=== PATIENT | male | born 1955 | race Caucasian/White ===

== ENCOUNTER 2018-06-05 15:00 | Inpatient (IN) ==
--- NOTE | 2018-06-05 15:46 | Emergency Department Note ---
Disposition Clinical Impression: Anemia Qualifiers: Anemia type: unspecified type Qualified Code(s): D64.9 - Anemia, unspecified Disposition: Admitted As Inpatient Condition: Fair Time of Disposition: 00:31 SOB HPI - General Chief Complaint: ED Shortness of Breath/Dyspnea Stated Complaint: SOB/No energy Time Seen by Provider: 06/05/18 15:13 Source: patient Mode of arrival: ambulatory Limitations: no limitations Nursing Notes Reviewed: Yes Vital Signs Reviewed: Yes - History of Present Illness Patient is a 63-year-old male presenting to [facility] ED for a one-year history of gradually progressive and worsening dyspnea and fatigue. Patient states he has a past medical history of myocardial infarction 2008 with a total 5 stent placements since this time. Patient also admits to past medical history of hypertension. In addition his symptoms mentioned above patient admits to intermittent pain on the right side of the back of his head and neck. Patient denies recent fevers chills, chest pain, new onset neck or back pain, abdominal pain/nausea. Admits to one recent episode of vomiting after eating a large meal last Saturday after religious but denies any recurrent episodes of such. Patient denies hematuria/hematochezia, hemoptysis, hematemesis or melena. Pt Subjective Complaint: shortness of breath Onset (ago): year(s) Improves with: rest Worsens with: exertion Known history of: other (IN, stent placement, hypertension) Associated symptoms: Reports: denies other symptoms Treatment prior to arrival: none Cough present: No - Related Data Home Medications Medication Instructions Recorded Confirmed Albuterol Sulfate [Ventolin Hfa] 2 puff IH Q6H PRN 06/05/18 06/05/18 Aspirin [Lo-Dose Aspirin EC] 81 mg PO DAILY 06/05/18 06/05/18 Atorvastatin Calcium [Lipitor] 80 mg PO HS 06/05/18 06/05/18 BuPROPion XL (24 HR) [Wellbutrin 150 mg PO DAILY 06/05/18 06/05/18 XL] Carvedilol [Coreg] 6.25 mg PO BIDWM 06/05/18 06/05/18 Celecoxib [Celebrex] 200 mg PO BID 06/05/18 06/05/18 DULoxetine [Cymbalta] 60 mg PO DAILY 06/05/18 06/05/18 Fluticasone/Salmeterol [Airduo 1 puff IH BID 06/05/18 06/05/18 Respiclick 113-14 Mcg] Mometasone/Formoterol [Dulera 100 2 puff IH BID 06/05/18 06/05/18 Mcg/5 Mcg Inhaler] OxyCODONE/APAP 5/325 [Percocet 1 each PO Q6HR PRN 06/05/18 06/05/18 5/325 MG] Pantoprazole Sodium [Protonix] 40 mg PO DAILY 06/05/18 06/05/18 RX: Lisinopril [Zestril] 10 mg PO HS 06/05/18 06/05/18 Ticagrelor [Brilinta] 60 mg PO BID 06/05/18 06/05/18 Allergies Allergy/AdvReac Type Severity Reaction Status Date / Time No Known Allergies Allergy Verified 06/05/18 18:03 All systems ED: reviewed and negative except as stated. Review of Systems: As Per HPI Constitutional: Reports: weakness. Denies: fever, chills Cardiovascular: Reports: dyspnea on exertion. Denies: chest pain Respiratory: Reports: dyspnea Gastrointestinal: Reports: nausea, vomiting. Denies: abdominal pain, diarrhea, constipation, hematemesis, melena, hematochezia Genitourinary: Denies: hematuria Neurological: Reports: headache, weakness. Denies: numbness, paresthesias Past Medical History - Past Medical History Source: patient Medical history: Reports: coronary artery disease, hyperlipidemia, hypertension, myocardial infarction Psychiatric history: Reports: no psych history - Social History Smoking Status: Former smoker Smokeless Tobacco Status: No Alcohol use: Reports: none Drug use: Reports: none Physical Exam - General Limitations: no limitations General appearance: alert, in no apparent distress - Head Head exam: atraumatic, normocephalic, normal inspection - Eye Eye exam: Present: normal appearance, PERRL, EOMI. Absent: scleral icterus - Neck Neck exam: Present: normal inspection, trachea midline. Absent: thyromegaly - Chest Chest inspection: Present: normal inspection, symmetric chest wall rise. Absent: tenderness, rash, abscess - Respiratory Respiratory exam: Present: normal lung sounds bilaterally. Absent: respiratory distress, wheezes, stridor, accessory muscle use, prolonged expiratory phase - Cardiovascular Cardiovascular exam: Present: regular rate, normal rhythm, systolic murmur (There is a grade 2/6 holosystolic murmur noted in the second intercostal space right of the sternum. Does not radiate to the carotids), +S1, +S2. Absent: diastolic murmur, JVD, +S3, +S4 - Abdominal Exam Abdominal exam: Present: soft, Non-Tender, normal bowel sounds. Absent: distention, guarding, rebound, rigidity, organomegaly - Extremities Exam Extremities exam: Present: normal inspection. Absent: pedal edema - Neurological Exam Neurological exam: Present: alert, oriented X3 - Psychiatric Psychiatric exam: Present: normal affect, normal mood - Skin Skin exam: Present: warm, dry, intact, normal color. Absent: rash, cyanosis, diaphoresis, erythema, pallor, mottled Course Course Narrative: CBC, BMP, chest x-ray hepatic panel Likely admitted to the hospital for further evaluation and management. Vital Signs Temperature 98.0 F 06/05/18 15:09 Pulse Rate 93 06/05/18 15:09 Respiratory Rate 18 06/05/18 15:09 Blood Pressure 116/79 06/05/18 15:09 O2 Sat by Pulse Oximetry 98 06/05/18 15:09 Temperature 97.6 F 06/05/18 22:48 Pulse Rate 76 06/05/18 22:48 Respiratory Rate 16 06/05/18 22:48 Blood Pressure 121/76 06/05/18 22:48 O2 Sat by Pulse Oximetry 96 06/05/18 22:48 Oxygen Delivery Oxygen Delivery Room Air Shortness of Breath/Dyspnea - [facility] Narrative Medical decision making narrative: Patient admitted to the hospitalist medicine service for further evaluation and management of anemia. Laboratory type and screen ordered with blood product starting in the ED. - Lab Data Lab results reviewed: Yes I reviewed the patient's lab results. Result diagrams: 06/05/18 15:39 06/05/18 15:39 Lab Results 06/05/18 06/05/18 06/05/18 Range/Units 15:39 15:39 16:08 WBC 8.7 (4.3-11.1) K/mcL RBC 3.06 L (4.19-5.50) M/mcL Hgb 7.0 L (12.9-16.9) g/dL Hct 23.7 L (37.5-50.1) % MCV 77.5 L (83.0-100.0) fL MCH 22.9 L (28.0-33.3) pg MCHC 29.5 L (31.6-35.5) g/dL RDW 19.4 H (11.5-14.5) % Plt Count 164 (140-400) K/mcL MPV 8.6 L (9.4-12.4) fL Immature Gran % 0.8 (0-4) % Seg Neutrophils % 70.3 % Lymphocytes % 14.8 % Monocytes % 8.9 % Eosinophils % 4.9 % Basophils % 0.3 % Neutrophils # 6.1 (1.6-8.9) K/mcL Lymphocytes # 1.3 (0.6-4.6) K/mcL Monocytes # 0.8 (0.0-1.3) K/mcL Eosinophils # 0.4 (0.0-0.6) K/mcL Basophils # 0.0 (0.0-0.2) K/mcL Sodium 133 L (136-145) mEq/L Potassium 4.7 (3.5-5.1) mEq/L Chloride 106 (98-107) mEq/L Carbon Dioxide 21 L (23-29) mEq/L BUN 26 H (8-23) mg/dL Creatinine 1.48 H (0.70-1.30) mg/dL Est GFR ( Amer) 58 L (> 60) Est GFR (Non-Af Amer) 48 L (> 60) BUN/Creatinine Ratio 18 (6-26) Glucose 133 H (70-105) mg/dL Calculated Osmolality 283 (280-300) Calcium 8.7 (8.6-10.3) mg/dL Iron (65-175) mcg/dL % Saturation (20-55) % Transferrin (203-362) mg/dL Ferritin (20-250) ng/mL Total Bilirubin 0.4 (0.3-1.0) mg/dL Direct Bilirubin 0.1 (0.0-0.2) mg/dL Indirect Bilirubin 0.3 (0.0-1.2) mg/dL AST 50 H (13-39) Units/L ALT 51 (7-52) Units/L Alkaline Phosphatase 280 H (34-104) Units/L Serum Total Protein 6.5 (6.4-8.9) g/dL Albumin 3.1 L (3.5-5.7) g/dL Globulin 3.4 (2.4-3.5) g/dL Albumin/Globulin Ratio 0.9 L (1.1-2.2) Vitamin B12 (250-1100) pg/mL Folate (3.0-16.0) ng/mL Stool Occult Bld Scrn (Negative) Blood Type O POSITIVE Antibody Screen NEGATIVE Crossmatch See Detail 06/05/18 06/05/18 06/05/18 Range/Units 16:43 18:18 18:18 WBC (4.3-11.1) K/mcL RBC (4.19-5.50) M/mcL Hgb (12.9-16.9) g/dL Hct (37.5-50.1) % MCV (83.0-100.0) fL MCH (28.0-33.3) pg MCHC (31.6-35.5) g/dL RDW (11.5-14.5) % Plt Count (140-400) K/mcL MPV (9.4-12.4) fL Immature Gran % (0-4) % Seg Neutrophils % % Lymphocytes % % Monocytes % % Eosinophils % % Basophils % % Neutrophils # (1.6-8.9) K/mcL Lymphocytes # (0.6-4.6) K/mcL Monocytes # (0.0-1.3) K/mcL Eosinophils # (0.0-0.6) K/mcL Basophils # (0.0-0.2) K/mcL Sodium (136-145) mEq/L Potassium (3.5-5.1) mEq/L Chloride (98-107) mEq/L Carbon Dioxide (23-29) mEq/L BUN (8-23) mg/dL Creatinine (0.70-1.30) mg/dL Est GFR ( Amer) (> 60) Est GFR (Non-Af Amer) (> 60) BUN/Creatinine Ratio (6-26) Glucose (70-105) mg/dL Calculated Osmolality (280-300) Calcium (8.6-10.3) mg/dL Iron 21 L (65-175) mcg/dL % Saturation 6 L (20-55) % Transferrin 254 (203-362) mg/dL Ferritin 39 (20-250) ng/mL Total Bilirubin (0.3-1.0) mg/dL Direct Bilirubin (0.0-0.2) mg/dL Indirect Bilirubin (0.0-1.2) mg/dL AST (13-39) Units/L ALT (7-52) Units/L Alkaline Phosphatase (34-104) Units/L Serum Total Protein (6.4-8.9) g/dL Albumin (3.5-5.7) g/dL Globulin (2.4-3.5) g/dL Albumin/Globulin Ratio (1.1-2.2) Vitamin B12 700 (250-1100) pg/mL Folate 17.6 H (3.0-16.0) ng/mL Stool Occult Bld Scrn Negative (Negative) Blood Type Antibody Screen Crossmatch - Radiology Data Radiology results reviewed: Yes I reviewed the patient's radiology results. Chest X-Ray 06/05/18 15:45 IMPRESSION: No acute process. Mild COPD is identified D/ / King Bravo MD / King Bravo MD Interpreting Provider: King Bravo MD - EKG Data EKG attestation: Yes I reviewed and interpreted this EKG. EKG results narrative: Patient EKG shows sinus rhythm with a ventricular rate of 80 bpm, VA interval of 137 ms, QR jewish 92 ms, QT/QTc interval 346/419 ms respectively. There are no significant ST segment elevations, depressions, pathologic units, abnormal T-wave inversions, or any other signs of acute ischemic change. This EKG performed today is generally consistent with prior EKG performed 06/07/2016. Attestation Statement - Attestation Attestation: I, Wayne Bautista, examined this patient and my medical decision-making was reviewed with the GLOBAL CONSUMER SECTOR VICE PRESIDENT/PA/Advanced Practice Nurse/Resident Physician. I agree with the documented findings, disposition and treatment plan as described except to the extent set forth below. 63-year-old male presents emergency Department with concerns of increased weakness, shortness breath and fatigue. Patient states his symptoms have been worsening over the past year. Patient denies hematochezia, melena, recent trauma. No changes in medications. No history of anemia in the past. Laboratory evaluation reveals hemoglobin of 7. This is likely the etiology of the patient's shortness breath and fatigue. He will be admitted to the hospitalist for further care and evaluation. Rectal exam emergency department did not show evidence of occult positive stool. He will require further follow- up of likely GI bleeding versus other source of his anemia.
[2018-06-05 16:09] LABS: Basophils % 0.3 %; Eosinophils # 0.4 K/mcL (0.0-0.6); Eosinophils % 4.9 %; Hematocrit 23.7 % (37.5-50.1); Immature Granulocytes % 0.8 % (0-4); Lymphocytes # 1.3 K/mcL (0.6-4.6); Lymphocytes % 14.8 %; Mean Corpuscular HGB Conc 29.5 g/dL (31.6-35.5); Mean Corpuscular Hemoglobin 22.9 pg (28.0-33.3); Mean Corpuscular Volume 77.5 fL (83.0-100.0); Mean Platelet Volume 8.6 fL (9.4-12.4); Monocytes # 0.8 K/mcL (0.0-1.3); Monocytes % 8.9 %; Neutrophils # 6.1 K/mcL (1.6-8.9); Platelet Count 164 K/mcL (140-400); Red Blood Count 3.06 M/mcL (4.19-5.50); Red Cell Distribution Width 19.4 % (11.5-14.5); Segmented Neutrophils % 70.3 %
[2018-06-05 16:15] LABS: Albumin 3.1 g/dL (3.5-5.7); Albumin/Globulin Ratio 0.9 (1.1-2.2); Bilirubin,Direct 0.1 mg/dL (0.0-0.2); Bilirubin,Indirect 0.3 mg/dL (0.0-1.2); Bilirubin,Total 0.4 mg/dL (0.3-1.0); Calcium 8.7 mg/dL (8.6-10.3); Globulin 3.4 g/dL (2.4-3.5); Potassium 4.7 mEq/L (3.5-5.1); Total Protein 6.5 g/dL (6.4-8.9)
[2018-06-05] MEDS ORDERED: Naloxone 0.4 MG/ML INJ IVP PRN (18:37)
[2018-06-05] MEDS ORDERED: Ondansetron 4 MG/2 ML VIAL IVP PRN (18:37)
[2018-06-05] MEDS ORDERED: *HR* OxyCODONE/APAP 5/325 TABLET PO PRN (18:39)
--- NOTE | 2018-06-05 18:52 | Internal Med History&Physical ---
Date of Encounter: 06/05/18 Time of Encounter: 18:20 Internal Medicine - H&P: HPI Chief complaint: generalized weakness, shortness of breath Admitted From: Home Plans for Post Hospital Care: Home History of present illness: Mr. Macias is a 63 year old male with PMH of COPD, CAD s/p PCI with MICHA placement, HTN, GERD, CKD, arthritis who presents to the ER for evaluation of generalized weakness and shortness of breath. Pt states he has been chronically feeling fatigued for over a year, however his symptoms have gradually worsened to a point where minimal ambulation(walking from his house to the car, walking to the bathroom) is causing him extreme fatigue and shortness of breath. He states he was exhausted of feeling this way due to which he came to the ER. ER workup reported Hgb of 7.0, last level from 2017 was 15. Pt reports of undergoing LHC with PCI in Feb and has been on Aspirin and Brilinta since then. He denies any hemetemeis, dark stool, any acute bleeding. He reports of being a former smoker and quit over 20 years ago. He is ordered to receive one unit PRBC. Rectal guaic test was negative in the ER. Pt reports of never having an endoscopy or colonoscopy. Ten point ROS is negative except as listed above Past Med Surg Social Fam HX - Past Medical History Medical history: coronary artery disease, hyperlipidemia, hypertension, myocardial infarction Additional medical history: stents x 5 Psychiatric history: no psych history - Social History Smoking Status: Former smoker Smokeless Tobacco Status: No Alcohol use: none Drug use: none Internal Medicine - H&P: Meds Albuterol Sulfate [Ventolin Hfa] 2 puff IH Q6H PRN 06/05/18 [History] Aspirin [Lo-Dose Aspirin EC] 81 mg PO DAILY 06/05/18 [History] Atorvastatin Calcium [Lipitor] 80 mg PO HS 06/05/18 [History] BuPROPion XL (24 HR) [Wellbutrin XL] 150 mg PO DAILY 06/05/18 [History] Carvedilol [Coreg] 6.25 mg PO BIDWM 06/05/18 [History] Celecoxib [Celebrex] 200 mg PO BID 06/05/18 [History] DULoxetine [Cymbalta] 60 mg PO DAILY 06/05/18 [History] Fluticasone/Salmeterol [Airduo Respiclick 113-14 Mcg] 1 puff IH BID 06/05/18 [History] Lisinopril [Zestril] 10 mg PO HS 06/05/18 [History] Mometasone/Formoterol [Dulera 100 Mcg/5 Mcg Inhaler] 2 puff IH BID 06/05/18 [History] OxyCODONE/APAP 5/325 [Percocet 5/325 MG] 1 each PO Q6HR PRN 06/05/18 [History] Pantoprazole Sodium [Protonix] 40 mg PO DAILY 06/05/18 [History] Ticagrelor [Brilinta] 60 mg PO BID 06/05/18 [History] Allergy/AdvReac Type Severity Reaction Status Date / Time No Known Allergies Allergy Verified 06/05/18 18:03 All Systems PM: A 10-system review of systems was performed and is negative for pertinent findings except as documented above in the HPI. Review of systems: Ten point ROS is negative except as listed in the HPI - Constitutional Vitals: Temp Pulse Resp BP Pulse Ox 98.0 F 76 16 122/86 97 06/05/18 15:25 06/05/18 16:47 06/05/18 16:47 06/05/18 16:47 06/05/18 16:47 Exam: General: No acute distress, AAO x 3, pleasant elderly male HEENT: EOMI, PERRLA, NC/AT, no scleral icterus Respiratory: Clear to auscultate bilaterally, no wheezing, no rales Cardiovascular: Regular, Rate, Rhythm, No murmurs GI: Soft, Non tender, non distended, normal bowel sounds Ext: No edema, no tenderness, positive pulses Neuro: AAO x 3, no focal deficits Internal Med - H&P Results - Labs CBC & Chem 7: 06/05/18 15:39 06/05/18 15:39 Labs: Short CBC 06/05/18 Range/Units 15:39 WBC 8.7 (4.3-11.1) K/mcL Hgb 7.0 L (12.9-16.9) g/dL Hct 23.7 L (37.5-50.1) % Plt Count 164 (140-400) K/mcL Neutrophils # 6.1 (1.6-8.9) K/mcL BMP 06/05/18 15:39 Sodium 133 L Potassium 4.7 Chloride 106 Carbon Dioxide 21 L BUN 26 H Creatinine 1.48 H Glucose 133 H Calcium 8.7 Liver Function 06/05/18 Range/Units 15:39 Total Bilirubin 0.4 (0.3-1.0) mg/dL Direct Bilirubin 0.1 (0.0-0.2) mg/dL AST 50 H (13-39) Units/L ALT 51 (7-52) Units/L Alkaline Phosphatase 280 H (34-104) Units/L Albumin 3.1 L (3.5-5.7) g/dL - Impressions ITS Impressions Chest X-Ray 06/05/18 15:45 IMPRESSION: No acute process. Mild COPD is identified D/ / King Bravo MD / King Bravo MD Interpreting Provider: King Bravo MD - Summary of Assessment and Plan Summary of Assessment and Plan: Mr. Macias is a 63 year old male with PMH of COPD, CAD s/p PCI with MICHA placement, HTN, GERD, arthritis who presents to the ER for evaluation of generalized weakness and shortness of breath. Assessment/Plan: 1. Generalized weakness likely secondary to symptomatic anemia Will transfuse one unit PRBC transfusion will obtain anemia workup, MCV values concerning for iron deficiency anemia f/u iron studies, ferritin, vitamin B12, folate (to be obtained prior to transfusion) f/u stool occult closely monitor H&H will obtain hematology/GI Evaluation based on the results of above studies will keep pt NPO overnight, pending test results for any acute intervention in am if stool occult is negative, pt will benefit from routine screening colonoscopy as outpatient (extensive counseling provided in regards to preventative screening) 2. Hx of CAD no signs of angina present at this time will continue home meds including Aspirin and brilinta as there is no acute bleeding reported 3. HTN BP within acceptable range continue home meds 4. JULIO on CKD likely secondary to symptomatic anemia will closely monitor hold lisinopril at this time hold NSAIDs at this time 5. GERD continue home dose of PPI 6. Arthritis hold NSAIDs at this time continue home dose of norco 7. DVT ppx SCDs. 8. COPD not in acute exacerbation continue home meds LOS > 2midnights Care plan discussed with patient/RN/family - Time Spent With Patient Total time spent is greater than 50% in coordination of care (as documented) at patient's floor/unit and/or counseling patient: 25 - 35 minutes
[2018-06-05] MEDS ORDERED: 0.9 % Sodium Chloride 500 ML ONE (19:15)
[2018-06-05 19:46] LABS: % Iron Saturation 6 % (20-55); Iron 21 mcg/dL (65-175); Transferrin 254 mg/dL (203-362)
[2018-06-05 20:04] LABS: Ferritin 39 ng/mL (20-250)
[2018-06-05 20:09] LABS: Folate 17.6 ng/mL (3.0-16.0)
[2018-06-05] MEDS ORDERED: Acetaminophen 325 MG TABLET PO PRN (22:19)
[2018-06-05] MEDS: Budesonide/Formoterol 80/4.5 MDI IH SCH (22:27)
[2018-06-05] MEDS ORDERED: Iron Sucrose Complex 200 MG in 0.9 % Sodium Chloride 100 ML IVPB ONE (22:31)
[2018-06-05] MEDS ORDERED: 0.9 % Sodium Chloride 1,000 ML IVC SCH (23:00)
[2018-06-06 02:42] LABS: Basophils % 0.3 %; Eosinophils # 0.4 K/mcL (0.0-0.6); Eosinophils % 4.1 %; Hematocrit 25.8 % (37.5-50.1); Hemoglobin 7.9 g/dL (12.9-16.9); Lymphocytes % 21.6 %; Mean Corpuscular HGB Conc 30.6 g/dL (31.6-35.5); Mean Corpuscular Hemoglobin 23.9 pg (28.0-33.3); Mean Corpuscular Volume 77.9 fL (83.0-100.0); Mean Platelet Volume 8.4 fL (9.4-12.4); Monocytes # 0.8 K/mcL (0.0-1.3); Monocytes % 9.3 %; Neutrophils # 5.8 K/mcL (1.6-8.9); Platelet Count 147 K/mcL (140-400); Red Blood Count 3.31 M/mcL (4.19-5.50); Red Cell Distribution Width 19.3 % (11.5-14.5); Segmented Neutrophils % 63.7 %
[2018-06-06 02:57] LABS: BUN/Creatinine Ratio 18 (6-26); Blood Urea Nitrogen 23 mg/dL (8-23); Calcium 8.6 mg/dL (8.6-10.3); Carbon Dioxide 22 mEq/L (23-29); Chloride 107 mEq/L (98-107); Glucose 95 mg/dL (70-105); Magnesium 1.7 mg/dL (1.6-2.6); Osmolality,Calculated 283 (280-300); Phosphorous 3.6 mg/dL (2.7-4.5); Potassium 4.8 mEq/L (3.5-5.1); Sodium 135 mEq/L (136-145); eGFR For Non-African Americans 55 (> 60)
[2018-06-06] MEDS ORDERED: Aspirin Enteric Coated 81 MG Tablet PO SCH (09:00)
[2018-06-06] MEDS ORDERED: BuPROPion XL (24 HR) 150 MG TABLET PO SCH (09:00)
[2018-06-06 09:04] LABS: Estimated Average Glucose 128 mg/dl; Hemoglobin A1C 6.1 %
--- NOTE | 2018-06-06 10:39 | Discharge Summary ---
- NOTES TO OUTPATIENT PROVIDER Notes to Outpatient Provider: Pt was admitted for symptomatic anemia. Noted to have iron deficiency anemia, started on Ferrous sulfate. Pt has never had a routine colonoscopy, which is recommended in the outpatient setting. Pt was also noted to have HbA1C of 6.1, and lifestyle modifications were recommended. Please closely monitor patient's H&H. Hematology follow up is recommended. Orders not resulted at time of discharge: Pending orders 06/05/18 18:39 Occult Blood,Stool [BF] Stat Date of Encounter: 06/06/18 Time of Encounter: 10:37 - Discharge Diagnosis (1) Symptomatic anemia Priority: Primary Status: Acute (2) JULIO (acute kidney injury) Priority: Secondary Status: Resolved Hospital course: Mr. Macias is a 63 year old male PMH of COPD, CAD s/p PCI with MICHA placement, HTN, GERD, CKD, arthritis who was admitted for management of symptomatic anemia. Pt received one unit PRBC transfusion on 06/05/18 with appropriate improvement in H&H. No acute bleeding was noted. Pt's anemia workup was consistent with iron deficiency anemia and he was started on iron supplementation. He was also noted to have JULIO on CKD which resolved after PRBC supplementation. He was also noted to have HbA1C of 6.1 and lifestyle modifications were recommended. Pt was seen and examined today. He reports of feeling better since his hospitalization. Pt encouraged to seek GI evaluation as outpatient for routine EGD and colonoscopy. Pt is medically stable for discharge to home with outpatient follow up with PCP, Hematology. Pt demonstrates understanding of her diagnosis and agrees with the discharge care and plan. Discharge discussed with: patient, nurse, case management - Time Spent with Patient Total time spent providing and/or coordinating discharge services: 35 minutes Time spent: Greater than 30 minutes - Discharge Medications Prescriptions: New Ferrous Sulfate 325 mg PO DAILY #30 tablet Sennosides/Docusate Sodium [Senna Plus] 1 each PO HS #30 tablet Continue Ticagrelor [Brilinta] 60 mg PO BID Albuterol Sulfate [Ventolin Hfa] 2 puff IH Q6H PRN PRN Reason: Shortness Of Breath Aspirin [Lo-Dose Aspirin EC] 81 mg PO DAILY Atorvastatin Calcium [Lipitor] 80 mg PO HS BuPROPion XL (24 HR) [Wellbutrin Xl] 150 mg PO DAILY Carvedilol [Coreg] 6.25 mg PO BIDWM Fluticasone/Salmeterol [Airduo Respiclick 113-14 Mcg] 1 puff IH BID Lisinopril [Zestril] 10 mg PO HS Mometasone/Formoterol [Dulera 100 Mcg/5 Mcg Inhaler] 2 puff IH BID OxyCODONE/APAP 5/325 [Percocet 5/325 MG] 1 each PO Q6HR PRN PRN Reason: Pain Pantoprazole Sodium [Protonix] 40 mg PO DAILY DULoxetine [Cymbalta] 60 mg PO DAILY Discontinued Celecoxib [Celebrex] 200 mg PO BID Home Medications: Albuterol Sulfate [Ventolin Hfa] 2 puff IH Q6H PRN 06/05/18 [History] Aspirin [Lo-Dose Aspirin EC] 81 mg PO DAILY 06/05/18 [History] Atorvastatin Calcium [Lipitor] 80 mg PO HS 06/05/18 [History] BuPROPion XL (24 HR) [Wellbutrin Xl] 150 mg PO DAILY 06/05/18 [History] Carvedilol [Coreg] 6.25 mg PO BIDWM 06/05/18 [History] DULoxetine [Cymbalta] 60 mg PO DAILY 06/05/18 [History] Fluticasone/Salmeterol [Airduo Respiclick 113-14 Mcg] 1 puff IH BID 06/05/18 [History] Lisinopril [Zestril] 10 mg PO HS 06/05/18 [History] Mometasone/Formoterol [Dulera 100 Mcg/5 Mcg Inhaler] 2 puff IH BID 06/05/18 [History] OxyCODONE/APAP 5/325 [Percocet 5/325 MG] 1 each PO Q6HR PRN 06/05/18 [History] Pantoprazole Sodium [Protonix] 40 mg PO DAILY 06/05/18 [History] Ticagrelor [Brilinta] 60 mg PO BID 06/05/18 [History] Ferrous Sulfate 325 mg PO DAILY #30 tablet 06/06/18 [Rx] Sennosides/Docusate Sodium [Senna Plus] 1 each PO HS #30 tablet 06/06/18 [Rx] Allergies/Adverse Reactions: Allergy/AdvReac Type Severity Reaction Status Date / Time No Known Allergies Allergy Verified 06/05/18 18:03 Date of admission: 06/05/18 19:05 Primary care physician: Angella Collins CNP Consults: 06/05/18 21:04 Consult to Pastoral Services [CONS] Routine Comment: Discharging clinician: Sujey Cisneros Anticipated date of discharge: 06/06/18 - Constitutional Vitals: Temp Pulse Resp BP Pulse Ox 97.4 F L 74 14 127/83 96 06/06/18 07:43 06/06/18 07:43 06/06/18 07:43 06/06/18 07:43 06/06/18 07:43 Exam: General: No acute distress, AAO x 3, pleasant elderly male HEENT: EOMI, PERRLA, NC/AT, no scleral icterus Respiratory: Clear to auscultate bilaterally, no wheezing, no rales Cardiovascular: Regular, Rate, Rhythm, No murmurs GI: Soft, Non tender, non distended, normal bowel sounds Ext: No edema, no tenderness, positive pulses Neuro: AAO x 3, no focal deficits - Patient Status Disposition: Home, Self-Care Condition: Fair Functional capacity at discharge: independent ambulation Overall status at discharge: patient is back to baseline - Discharge Instructions Follow Up With: Angella Collins CNP [Primary Care Provider] - Additional Instructions: Your home medications have been changed as follows: -Celebrex has been discontinued -Ferrous Sulfate 325mg once a day has been added -Senna Plus (stool softener) once a day has been added. Ferrous sulfate(iron) can cause dark stool and constipation, due to which it is recommended to take a stool softener daily. Take Ferrous Sulfate with meals at dinner time and your home dose of protonix in the morning. Protonix decreases iron absorption due to which both of these medications should not be taken together. Please follow up with your primary care physician within five days after your discharge from the hospital Please follow up with Hematology within one week after your discharge from the hospital. Please ask your PCP about a referral to GI for routine endoscopy and colonoscopy due to anemia Resume all your other home medications as prescribed by your primary care physician. Ask your tax accounting manager about continuation of Aspirin and Brilinta. You were also noted to have HbA1C: 6.1 which puts you in prediabetic range. Weight loss and dietary changes are recommended. - Diet and Activity Activity: resume usual activities as tolerated Diet: low fat, low cholesterol, low salt diet
[2018-06-06] MEDS: Budesonide/Formoterol 80/4.5 MDI IH SCH (11:50)
--- NOTE | 2018-06-07 10:57 | Electrocardiograph Report ---
[place] [id number] Test Date: 2018-06-05 Pat Name: Reese Macias Department: [id number] Room: 3A33 Gender: M [employer]ai Culturist: : 1955 Requested By: Sandro Torre Order Number: [id number] Reading MD: Vesna Tabor Measurements Intervals [place] Rate: 88 P: 49 NC: 137 QRS: 54 QRSD: 92 T: 48 QT: 346 QTc: 419 Interpretive Statements Sinus rhythm Baseline wander Electronically Signed On 06-07-2018 10:56:00 EDT by Vesna Tabor
[2018-06-07 12:23] VITALS: BP 97/59
== END 2018-06-06 12:16 | disposition home or self-care (01) | DRG 812 ==
LOC: 3ANU 15:00 → EMEROOARM 15:00 → OBSVTOIN 19:05 → SUATTDRO 19:05 → 3ANU 20:48
PROVIDERS: ADMIT Internal Medicine; ATTEND Internal Medicine